=== PATIENT | male | born 1965 | race African-American/Black ===

== ENCOUNTER 2016-07-19 05:57 | Emergency (ER) | payer MEDICAID ==
[~2016-07-19] VITALS: Ht 162.6 cm; Wt 68.2 kg
[~2016-07-19 05:57] MED LIST: ALBU8HFA IH; PRED5 PO
[2016-07-19] MEDS ORDERED: MethylPREDNISolone SOD SUCC 125 MG/2 ML VIAL IVP ONE (06:30)
[2016-07-19] MEDS ORDERED: IPRATROPIUM BROMIDE 0.5 MG/2.5 ML NEB SOLUTION NEB ONE (06:30)
[2016-07-19] MEDS ORDERED: ALBUTEROL SULFATE 5 MG/ML 20 ML NEB SOLN [BULK] NEB ONE (06:30)
[2016-07-19 07:28] VITALS: BP 156/98
[2016-07-19] MEDS ORDERED: ALBUTEROL SULFATE HFA 90 MCG/PUFF 8 GM INHALER IH ONE (08:15)
== END 2016-07-19 08:53 | disposition home or self-care (01) ==
LOC: EMS 05:58
DX: J45.909 Unspecified asthma, uncomplicated (principal)
CPT/HCPCS: 71010; 94644; 96374; 99285; J2930; J7611; J3535

== ENCOUNTER 2017-03-22 05:45 | Emergency (ER) | payer MEDICAID, OTHER ==
[~2017-03-22] VITALS: Ht 170.2 cm; Wt 79.5 kg
[2017-03-22] MEDS ORDERED: ALBUTEROL SULFATE 5 MG/ML 20 ML NEB SOLN [BULK] NEB ONE ×2 (06:15)
[2017-03-22] MEDS ORDERED: IPRATROPIUM BROMIDE 0.5 MG/2.5 ML NEB SOLUTION NEB ONE ×2 (06:15)
[2017-03-22] MEDS ORDERED: MethylPREDNISolone SOD SUCC 125 MG/2 ML VIAL IVP ONE (06:30)
[2017-03-22] MEDS ORDERED: 0.9% SODIUM CHLORIDE 15 ML NEB SOLUTION NEB ONE (06:34)
[2017-03-22 09:30] VITALS: BP 136/98
[2017-03-22] MEDS ORDERED: ALBUTEROL SULFATE HFA 90 MCG/PUFF 8 GM INHALER IH ONE (09:30)
== END 2017-03-22 09:59 | disposition home or self-care (01) ==
LOC: EMS 05:46
DX: J45.901 Unspecified asthma with (acute) exacerbation (principal)
CPT/HCPCS: 94644; 96374; 99285; J2930; J7611; J3535

== ENCOUNTER 2017-06-26 07:25 | Emergency (ER) | payer OTHER ==
[~2017-06-26] VITALS: Ht 170.2 cm; Wt 65.9 kg
[2017-06-26] MEDS ORDERED: ALBUTEROL SULFATE HFA 90 MCG/PUFF 8 GM INHALER IH ONE (08:15)
[2017-06-26 08:36] VITALS: BP 172/107
== END 2017-06-26 08:37 | disposition home or self-care (01) ==
LOC: EMS 07:26
DX: J45.909 Unspecified asthma, uncomplicated (principal)
CPT/HCPCS: 94640; 99283; J3535

== ENCOUNTER 2018-05-28 15:41 | Emergency (ER) | payer OTHER ==
[~2018-05-28] VITALS: Ht 167.6 cm; Wt 68.2 kg
[~2018-05-28 15:41] MED LIST changes: -PRED5 PO
[2018-05-28 17:02] VITALS: BP 145/85
== END 2018-05-28 17:06 | disposition home or self-care (01) ==
LOC: EMS 15:41
DX: J45.909 Unspecified asthma, uncomplicated (principal)

== ENCOUNTER 2018-07-09 10:03 | Emergency (ER) | payer OTHER ==
[~2018-07-09] VITALS: Ht 172.7 cm; Wt 66.8 kg
[2018-07-09] MEDS ORDERED: ALBUTEROL SULFATE HFA 90 MCG/PUFF 8 GM INHALER IH ONE ×2 (11:39→12:00)
[2018-07-09 12:34] VITALS: BP 165/87
== END 2018-07-09 12:43 | disposition home or self-care (01) ==
LOC: EMS 10:07 → EDSEX 10:07 → EMS 12:43
DX: J45.901 Unspecified asthma with (acute) exacerbation (principal)
CPT/HCPCS: 94640; J3535

== ENCOUNTER 2018-07-17 09:23 | Emergency (ER) | payer OTHER ==
[~2018-07-17] VITALS: Ht 170.2 cm; Wt 70.5 kg
[2018-07-17] MEDS: IPRATROPIUM BROMIDE 0.5 MG/2.5 ML NEB SOLUTION NEB ONE ×2 (09:57→10:23)
[2018-07-17] MEDS: ALBUTEROL SULFATE 5 MG/ML 20 ML NEB SOLN [BULK] NEB ONE ×2 (09:57→10:23)
[2018-07-17] MEDS ORDERED: PredniSONE 20 MG TABLET PO ONE (10:00)
[2018-07-17] MEDS ORDERED: ALBUTEROL SULFATE HFA 90 MCG/PUFF 8 GM INHALER IH ONE (12:15)
[2018-07-17 12:24] VITALS: BP 166/98
== END 2018-07-17 12:40 | disposition home or self-care (01) ==
LOC: EMS 09:24
DX: J45.901 Unspecified asthma with (acute) exacerbation (principal); Z91.018 Allergy to other foods
CPT/HCPCS: 71045; 94644; 99285; J7512; J3535

== ENCOUNTER 2018-09-26 03:10 | Emergency (ER) | payer OTHER ==
[~2018-09-26] VITALS: Ht 167.6 cm; Wt 68.2 kg
[2018-09-26] MEDS ORDERED: MethylPREDNISolone SOD SUCC 125 MG/2 ML VIAL IVP ONE (03:45)
[2018-09-26] MEDS ORDERED: IPRATROPIUM BROMIDE 0.5 MG/2.5 ML NEB SOLUTION NEB ONE ×2 (03:45→05:45)
[2018-09-26] MEDS ORDERED: ALBUTEROL SULFATE 5 MG/ML 20 ML NEB SOLN [BULK] NEB ONE ×2 (03:45→05:45)
[2018-09-26 06:09] LABS: BASOPHILS % (AUTO) 0.6 % (0.0-2.0); EOSINOPHILS % (AUTO) 1.6 % (1.0-6.0); HEMATOCRIT 45.9 % (41-53); LYMPHOCYTES # (AUTO) 1.1 K/uL (1.0-4.8); LYMPHOCYTES % (AUTO) 10.1 % (22.0-44.0); MEAN CORPUSCULAR HEMOGLOBIN 27.3 pg (26.0-34.0); MEAN CORPUSCULAR HGB CONC 32.7 G/dL (31.0-37.0); MEAN CORPUSCULAR VOLUME 84 fL (80-100); MONOCYTES # (AUTO) 0.4 K/uL (0.1-1.0); MONOCYTES % (AUTO) 3.5 % (2.0-9.0); NEUTROPHILS # (AUTO) 9.5 K/uL (1.8-7.7); NEUTROPHILS % (AUTO) 84.2 % (40.0-70.0); PLATELET COUNT (AUTO) 237 K/uL (150-450); RED CELL DISTRIBUTION WIDTH 14.9 % (11.5-14.5)
[2018-09-26 06:18] LABS: ANION GAP 9 mmol/L (8-16); CALCIUM, TOTAL 9.2 mg/dL (8.8-10.5); CARBON DIOXIDE 28 mmol/L (22-29); CHLORIDE 104 mmol/L (98-107); CREATININE 1.39 mg/dL (0.60-1.30); GLOMERULAR FILTR. RATE CALC > 60 mL/min (>60); GLUCOSE,RANDOM 141 mg/dL (70-110); POTASSIUM 3.3 mmol/L (3.5-5.1); SODIUM SERUM 141 mmol/L (136-145); UREA NITROGEN, BLOOD 11 mg/dL (7-18)
[2018-09-26 06:23] LABS: ALANINE AMINOTRANSFERASE 22 U/L (12-78); ALBUMIN 3.8 g/dL (3.4-5.0); ALKALINE PHOSPHATASE 71 U/L (46-116); ASPARTATE AMINOTRANSFERASE 18 U/L (15-37); BILIRUBIN,TOTAL 0.2 mg/dL (0.1-1.0); TOTAL PROTEIN, SERUM 7.8 g/dL (6.4-8.2)
[2018-09-26] MEDS ORDERED: ACETAMINOPHEN 325 MG TABLET PO PRN (06:30)
[2018-09-26] MEDS ORDERED: ONDANSETRON HCL 4 MG/2 ML VIAL IVP PRN (06:30)
[2018-09-26] MEDS ORDERED: 0.9% SODIUM CHLORIDE 10 ML SYRINGE IVP PRN (06:30)
[2018-09-26] MEDS ORDERED: ALBUTEROL SULFATE 2.5 MG/0.5 ML NEB SOLUTION NEB SCH (08:00)
[2018-09-26] MEDS ORDERED: IPRATROPIUM BROMIDE 0.5 MG/2.5 ML NEB SOLUTION NEB SCH (08:00)
[2018-09-26 10:40] VITALS: BP 139/92
== END 2018-09-26 11:22 | disposition left against medical advice (07) ==
LOC: EMS 03:10
DX: J45.901 Unspecified asthma with (acute) exacerbation (principal); Z91.018 Allergy to other foods
CPT/HCPCS: 36415; 71045; 80053; 85025; 94640; 94644; 96374; 99285; J2930

== ENCOUNTER 2018-10-21 00:01 | Emergency (ER) | payer OTHER ==
[~2018-10-21] VITALS: Ht 167.6 cm; Wt 70.5 kg
[2018-10-21] MEDS ORDERED: BACITRACIN 0.9 GM PACKET OINTMENT TP ONE (01:45)
[2018-10-21] MEDS ORDERED: CEPHALEXIN MONOHYDRATE 500 MG CAPSULE PO ONE (01:45)
[2018-10-21] MEDS ORDERED: PERTUSS(ACELL),DIPH,TET VAC/PF 0.5 ML VIAL IM ONE (02:00)
[2018-10-21 02:04] VITALS: BP 138/89
== END 2018-10-21 02:09 | disposition home or self-care (01) ==
LOC: EMS 00:03
DX: S61.411A Laceration without foreign body of right hand, initial encounter (principal); J45.909 Unspecified asthma, uncomplicated; Z91.018 Allergy to other foods; W45.8XXA Other foreign body or object entering through skin, initial encounter; Y93.89 Activity, other specified; Y92.89 Other specified places as the place of occurrence of the external cause; Y99.8 Other external cause status
CPT/HCPCS: 90471; 90715

== ENCOUNTER 2018-12-30 08:56 | Emergency (ER) | payer OTHER ==
[~2018-12-30] VITALS: Ht 167.6 cm; Wt 68.2 kg
[2018-12-30] MEDS ORDERED: IPRATROPIUM BROMIDE 0.5 MG/2.5 ML NEB SOLUTION NEB ONE ×2 (09:02→09:15)
[2018-12-30] MEDS ORDERED: ALBUTEROL SULFATE 5 MG/ML 20 ML NEB SOLN [BULK] NEB ONE (09:15)
[2018-12-30] MEDS ORDERED: ALBUTEROL SULFATE HFA 90 MCG/PUFF 8 GM INHALER IH ONE (09:15)
[2018-12-30 10:54] VITALS: BP 155/91
== END 2018-12-30 11:06 | disposition home or self-care (01) ==
LOC: EMS 08:56
DX: J45.901 Unspecified asthma with (acute) exacerbation (principal); Z91.018 Allergy to other foods
CPT/HCPCS: 94060; 94644; J3535

== ENCOUNTER 2019-04-10 19:45 | Emergency (ER) | payer OTHER ==
[~2019-04-10] VITALS: Ht 170.2 cm; Wt 72.7 kg
[2019-04-10] MEDS ORDERED: ALBUTEROL SULFATE 2.5 MG/0.5 ML NEB SOLUTION NEB ONE (20:00)
[2019-04-10] MEDS ORDERED: IPRATROPIUM BROMIDE 0.5 MG/2.5 ML NEB SOLUTION NEB ONE (20:00)
[2019-04-10] MEDS ORDERED: ALBUTEROL SULFATE HFA 90 MCG/PUFF 8 GM INHALER IH ONE (21:45)
[2019-04-10] MEDS ORDERED: PredniSONE 20 MG TABLET PO ONE (21:45)
[2019-04-10 21:54] VITALS: BP 158/90
== END 2019-04-10 22:00 | disposition left against medical advice (07) ==
LOC: EMS 19:45
DX: J45.901 Unspecified asthma with (acute) exacerbation (principal); Z79.899 Other long term (current) drug therapy; Z91.018 Allergy to other foods
CPT/HCPCS: 71045; 94640; 99284; J7512; J3535

== ENCOUNTER 2020-10-19 17:34 | Emergency (ER) | payer OTHER ==
[~2020-10-19] VITALS: Ht 167.6 cm; Wt 72.0 kg
[2020-10-19 18:44] LABS: BASOPHILS % (AUTO) 0.8 % (0.0-2.0); EOSINOPHILS % (AUTO) 4.2 % (1.0-6.0); HEMATOCRIT 40.3 % (41-53); LYMPHOCYTES # (AUTO) 2.4 K/uL (1.0-4.8); LYMPHOCYTES % (AUTO) 27.8 % (22.0-44.0); MEAN CORPUSCULAR HEMOGLOBIN 26.5 pg (26.0-34.0); MEAN CORPUSCULAR HGB CONC 32.2 G/dL (31.0-37.0); MEAN CORPUSCULAR VOLUME 82 fL (80-100); MONOCYTES # (AUTO) 0.7 K/uL (0.1-1.0); MONOCYTES % (AUTO) 8.8 % (2.0-9.0); NEUTROPHILS % (AUTO) 58.4 % (40.0-70.0); PLATELET COUNT (AUTO) 257 K/uL (150-450); RED BLOOD CELL COUNT(AUTO) 4.91 MIL/uL (4.50-5.90); RED CELL DISTRIBUTION WIDTH 14.9 % (11.5-14.5)
[2020-10-19 18:53] LABS: CALCIUM, TOTAL 8.9 mg/dL (8.8-10.5); CREATININE 1.55 mg/dL (0.60-1.30)
[2020-10-19 19:08] LABS: ALBUMIN 3.5 g/dL (3.4-5.0); BILIRUBIN,TOTAL 0.3 mg/dL (0.1-1.0); THYROID STIMULATING HORMONE 0.7 uIU/mL (0.36-3.74); TOTAL PROTEIN, SERUM 7.3 g/dL (6.4-8.2)
[2020-10-19 19:42] VITALS: BP 148/80
== END 2020-10-19 19:43 | disposition home or self-care (01) ==
LOC: EMS 17:34
DX: R00.2 Palpitations (principal); J45.909 Unspecified asthma, uncomplicated; Z91.018 Allergy to other foods
CPT/HCPCS: 80053; 84443; 85025; 93005; 99284

== ENCOUNTER 2021-04-19 23:52 | Emergency (ER) | payer OTHER ==
[~2021-04-19] VITALS: Ht 170.2 cm; Wt 70.5 kg
[2021-04-20] MEDS ORDERED: 0.9% SODIUM CHLORIDE 5 ML NEB SOLUTION NEB ONE (00:24)
[2021-04-20] MEDS ORDERED: 0.9% SODIUM CHLORIDE 10 ML SYRINGE IVP PRN (00:30)
[2021-04-20] MEDS ORDERED: ALBUTEROL SULFATE 5 MG/ML 20 ML NEB SOLN [BULK] NEB ONE (00:30)
[2021-04-20 01:15] LABS: ANION GAP 11 mmol/L (8-16); CALCIUM, TOTAL 9.2 mg/dL (8.8-10.5); CARBON DIOXIDE 27 mmol/L (22-29); CHLORIDE 103 mmol/L (98-107); CREATININE 1.26 mg/dL (0.60-1.30); GLOMERULAR FILTR. RATE CALC > 60 mL/min (>60); GLUCOSE,RANDOM 153 mg/dL (70-110); POTASSIUM 3.4 mmol/L (3.5-5.1); SODIUM SERUM 141 mmol/L (136-145); UREA NITROGEN, BLOOD 12 mg/dL (7-18)
[2021-04-20 01:16] LABS: BASOPHILS % (AUTO) 0.4 % (0.0-2.0); EOSINOPHILS % (AUTO) 2.5 % (1.0-6.0); HEMATOCRIT 44.1 % (41-53); HEMOGLOBIN 14.9 g/dL (13.5-17.5); LYMPHOCYTES # (AUTO) 2.1 K/uL (1.0-4.8); LYMPHOCYTES % (AUTO) 22.5 % (22.0-44.0); MEAN CORPUSCULAR HGB CONC 33.7 G/dL (31.0-37.0); MEAN CORPUSCULAR VOLUME 80 fL (80-100); MONOCYTES # (AUTO) 1.1 K/uL (0.1-1.0); MONOCYTES % (AUTO) 11.9 % (2.0-9.0); NEUTROPHILS # (AUTO) 5.9 K/uL (1.8-7.7); NEUTROPHILS % (AUTO) 62.7 % (40.0-70.0); PLATELET COUNT (AUTO) 239 K/uL (150-450); RED BLOOD CELL COUNT(AUTO) 5.49 MIL/uL (4.50-5.90); RED CELL DISTRIBUTION WIDTH 14.7 % (11.5-14.5)
[2021-04-20 01:19] LABS: PROTHROMBIN TIME 10.8 SEC (9.4-11.6)
[2021-04-20 01:21] LABS: ALANINE AMINOTRANSFERASE 28 U/L (12-78); ALBUMIN 3.6 g/dL (3.4-5.0); ALKALINE PHOSPHATASE 97 U/L (46-116); ASPARTATE AMINOTRANSFERASE 27 U/L (15-37); BILIRUBIN,TOTAL 0.4 mg/dL (0.1-1.0); TOTAL PROTEIN, SERUM 7.8 g/dL (6.4-8.2)
[2021-04-20 01:23] LABS: LACTIC ACID 0.7 mmol/L (0.4-2.0)
[2021-04-20 01:32] LABS: COVID AG,FIA SOURCE NASOPHARYNGEAL
[2021-04-20] MEDS ORDERED: IBUPROFEN 800 MG TABLET PO ONE (01:45)
[2021-04-20] MEDS ORDERED: ACETAMINOPHEN 500 MG TABLET PO ONE (01:45)
[2021-04-20] MEDS ORDERED: POTASSIUM CHLORIDE 20 MEQ ER TABLET PO ONE (02:45)
[2021-04-20 04:07] VITALS: BP 156/89
[2021-04-20 04:12] LABS: D-DIMER 0.19 mg/L FEU (0.00-0.50)
== END 2021-04-20 05:00 | disposition home or self-care (01) ==
LOC: EMS 23:56
DX: J45.909 Unspecified asthma, uncomplicated (principal); Z20.822 Contact with and (suspected) exposure to COVID-19; Z79.899 Other long term (current) drug therapy; Z91.018 Allergy to other foods
CPT/HCPCS: 36415; 71045; 80053; 83605; 85025; 85379; 85610; 87040; 87426; 93005; 94640; 99285; U0003; J7611

== ENCOUNTER 2022-03-26 01:28 | Emergency (ER) | payer OTHER ==
[~2022-03-26] VITALS: Ht 170.2 cm; Wt 71.0 kg
[2022-03-26 05:44] LABS: BASOPHILS % (AUTO) 0.9 % (0.0-2.0); EOSINOPHILS % (AUTO) 3.4 % (1.0-6.0); HEMATOCRIT 42.8 % (41-53); HEMOGLOBIN 14.1 g/dL (13.5-17.5); LYMPHOCYTES # (AUTO) 2.1 K/uL (1.0-4.8); LYMPHOCYTES % (AUTO) 17.2 % (22.0-44.0); MEAN CORPUSCULAR HGB CONC 32.9 G/dL (31.0-37.0); MEAN CORPUSCULAR VOLUME 82 fL (80-100); MONOCYTES # (AUTO) 0.9 K/uL (0.1-1.0); MONOCYTES % (AUTO) 7.5 % (2.0-9.0); NEUTROPHILS # (AUTO) 8.8 K/uL (1.8-7.7); PLATELET COUNT (AUTO) 343 K/uL (150-450); RED CELL DISTRIBUTION WIDTH 14.8 % (11.5-14.5)
[2022-03-26 05:53] LABS: CALCIUM, TOTAL 9.8 mg/dL (8.8-10.5); CREATININE 1.56 mg/dL (0.60-1.30); POTASSIUM 4.2 mmol/L (3.5-5.1)
[2022-03-26 05:59] LABS: ALBUMIN 3.7 g/dL (3.4-5.0); BILIRUBIN,TOTAL 0.5 mg/dL (0.1-1.0); TOTAL PROTEIN, SERUM 8.3 g/dL (6.4-8.2)
[2022-03-26 06:53] VITALS: BP 149/75
== END 2022-03-26 07:12 | disposition home or self-care (01) ==
LOC: EMS 01:29
DX: S80.12XA Contusion of left lower leg, initial encounter (principal); J45.909 Unspecified asthma, uncomplicated; D17.5 Benign lipomatous neoplasm of intra-abdominal organs; Z91.018 Allergy to other foods; X58.XXXA Exposure to other specified factors, initial encounter; Y93.B2 Activity, push-ups, pull-ups, sit-ups; Y92.89 Other specified places as the place of occurrence of the external cause; Y99.8 Other external cause status
CPT/HCPCS: 80053; 85025; 99284

== ENCOUNTER 2023-03-14 07:03 | Emergency (ER) | payer OTHER ==
[~2023-03-14] VITALS: Ht 165.1 cm; Wt 68.2 kg
[2023-03-14] VITALS (7 sets, daily range): BP systolic 138; BP diastolic 83; PULSE 71–118; RESP 20; TEMP 98.8; O2SAT 97–100
[~2023-03-14 07:03] MED LIST changes: +ALBU18HF12 IH; -ALBU8HFA IH; +PRED-729 PO
[2023-03-14] MEDS ORDERED: ALBUTEROL SULFATE 2.5 MG/0.5 ML 5 ML NEB SOLUTION NEB ONE ×2 (07:15→10:15)
[2023-03-14] MEDS ORDERED: MethylPREDNISolone SOD SUCC 125 MG/2 ML VIAL IVP ONE (07:15)
[2023-03-14] MEDS ORDERED: IPRATROPIUM BROMIDE 0.5 MG/2.5 ML NEB SOLUTION NEB ONE ×2 (07:15→10:15)
[2023-03-14 08:53] LABS: ALCOHOL, BLOOD (SERUM) < 3 mg/dL (0-10); ANION GAP 6 mmol/L (8-16); CALCIUM, TOTAL 9.1 mg/dL (8.8-10.5); CARBON DIOXIDE 29 mmol/L (22-29); CHLORIDE 103 mmol/L (98-107); CREATININE 1.48 mg/dL (0.60-1.30); GLOMERULAR FILTR. RATE CALC 60 mL/min (>60); GLUCOSE,RANDOM 160 mg/dL (70-110); POTASSIUM 3.5 mmol/L (3.5-5.1); SODIUM SERUM 138 mmol/L (136-145); UREA NITROGEN, BLOOD 15 mg/dL (7-18)
[2023-03-14 09:01] LABS: TROPONIN I-HIGH SENSITIVITY 22 ng/L (<76)
[2023-03-14 09:18] LABS: ALANINE AMINOTRANSFERASE 31 U/L (12-78); ALBUMIN 3.8 g/dL (3.4-5.0); ALKALINE PHOSPHATASE 95 U/L (46-116); ASPARTATE AMINOTRANSFERASE 26 U/L (15-37); BILIRUBIN,TOTAL 0.3 mg/dL (0.1-1.0); CREATINE KINASE, TOTAL ONLY 202 U/L (39-308); LIPASE 56 U/L (16-77); TOTAL PROTEIN, SERUM 8.2 g/dL (6.4-8.2)
[2023-03-14 09:23] LABS: BASOPHILS % (AUTO) 0.4 % (0.0-2.0); EOSINOPHILS % (AUTO) 3.4 % (1.0-6.0); HEMATOCRIT 42.6 % (41-53); HEMOGLOBIN 14.2 g/dL (13.5-17.5); LYMPHOCYTES # (AUTO) 2.1 K/uL (1.0-4.8); LYMPHOCYTES % (AUTO) 17.7 % (22.0-44.0); MEAN CORPUSCULAR HEMOGLOBIN 27.8 pg (26.0-34.0); MEAN CORPUSCULAR HGB CONC 33.4 G/dL (31.0-37.0); MEAN CORPUSCULAR VOLUME 83 fL (80-100); MONOCYTES # (AUTO) 0.7 K/uL (0.1-1.0); MONOCYTES % (AUTO) 5.6 % (2.0-9.0); NEUTROPHILS # (AUTO) 8.5 K/uL (1.8-7.7); NEUTROPHILS % (AUTO) 72.9 % (40.0-70.0); PLATELET COUNT (AUTO) 265 K/uL (150-450); RED BLOOD CELL COUNT(AUTO) 5.13 MIL/uL (4.50-5.90); RED CELL DISTRIBUTION WIDTH 14.8 % (11.5-14.5); WHITE BLOOD COUNT (AUTO) 11.7 K/uL (4.5-11.0)
[2023-03-14 09:23] LABS: COVID AG,FIA SOURCE NASAL SWAB
[2023-03-14 09:48] LABS: INFLUENZA TYPE A NEGATIVE FOR TYPE A (NEGATIVE); INFLUENZA TYPE B NEGATIVE FOR TYPE B (NEGATIVE); SARS-COV2 (COVID) ANTIGEN,FIA Negative (Negative)
[2023-03-14] MEDS ORDERED: GUAIFDM PO (12:06)
[2023-03-14] MEDS ORDERED: ALBU18HF12 IH (12:06)
[2023-03-14] MEDS ORDERED: AZIT250T9 PO (12:06)
[2023-03-14] MEDS ORDERED: PRED-554 PO (12:06)
[2023-03-14] MEDS ORDERED: FLUT12AE20 IH (12:06)
[2023-03-14 13:31] LABS: APPEARANCE,URINE CLEAR (CLEAR); BILIRUBIN,URINE NEGATIVE (NEGATIVE); COLOR,URINE LIGHT YELLOW (YELLOW); GLUCOSE, URINE (UA) NEGATIVE (NEGATIVE); KETONES,URINE NEGATIVE (NEGATIVE); LEUKOCYTE ESTERASE ,URINE NEGATIVE (NEGATIVE); NITRATE,URINE NEGATIVE (NEGATIVE); OCCULT BLOOD,URINE NEGATIVE (NEGATIVE); PH,URINE 5.5 (5.0-8.0); PROTEIN,URINE TRACE mg/dL (NEGATIVE); SPECIFIC GRAVITIY, URINE 1.017 (1.003-1.030); UROBILINOGEN,URINE <=1.0 mg/dL (<=1.0)
[2023-03-14 13:53] LABS: BACTERIA,URINE None Seen /HPF (None Seen); RBC,URINE None Seen /HPF (0-2); WBC,URINE None Seen /HPF (0-5)
== END 2023-03-14 12:42 | disposition left against medical advice (07) ==
LOC: EMS 07:04
DX: J45.902 Unspecified asthma with status asthmaticus (principal); Z91.018 Allergy to other foods; Z20.822 Contact with and (suspected) exposure to COVID-19
CPT/HCPCS: 99291; 96374; 71045; 87426; 80053; 82550; 83605; 83690; 84484; 85025; 87040; 87205; 87804; 87077; 94644; 93005; 81001; 36415; G0480; J2930; Q9967

== ENCOUNTER 2023-03-16 02:34 | Emergency (ER) | payer OTHER ==
[~2023-03-16] VITALS: Ht 165.1 cm; Wt 68.2 kg
[~2023-03-16 02:34] MED LIST changes: +AZIT250T9 PO; +FLUT12AE20 IH; +GUAIFDM PO; +PRED-554 PO
[2023-03-16] MEDS ORDERED: ALBUTEROL SULFATE 2.5 MG/0.5 ML 5 ML NEB SOLUTION NEB ONE (04:00)
[2023-03-16] MEDS ORDERED: IPRATROPIUM BROMIDE 0.5 MG/2.5 ML NEB SOLUTION NEB ONE (04:00)
[2023-03-16 04:27] VITALS: PULSE 58; RESP 21; O2SAT 95
[2023-03-16 04:28] VITALS: PULSE 58; RESP 21; O2SAT 95
[2023-03-16] MEDS ORDERED: DEXAMETHASONE SOD PHOS 4 MG/ML 5 ML VIAL IM ONE (04:30)
[2023-03-16] MEDS ORDERED: PRED-554 PO (05:21)
[2023-03-16] MEDS ORDERED: ALBU18HF12 IH (05:21)
[2023-03-16 06:18] VITALS: BP 132/99; PULSE 89; RESP 21; TEMP 97.3
== END 2023-03-16 06:33 | disposition home or self-care (01) ==
LOC: EMS 02:35
DX: J45.901 Unspecified asthma with (acute) exacerbation (principal); Z91.018 Allergy to other foods
CPT/HCPCS: 94060; 99283; 96372; 94640; J1100; Q9967

== ENCOUNTER → 2023-07-14 | Emergency (ER) | payer OTHER ==
[2023-07-13 01:10] VITALS: PULSE 111; RESP 20; O2SAT 97
[~2023-07-14] VITALS: Ht 167.6 cm; Wt 51.0 kg
[~2023-07-14] MED LIST changes: -AZIT250T9 PO
[2023-07-14 00:30] VITALS: BP 159/97; TEMP 97.7
[2023-07-14] MEDS: ALBUTEROL SULFATE 2.5 MG/0.5 ML NEB SOLUTION NEB ONE (00:53)
[2023-07-14] MEDS: IPRATROPIUM BROMIDE 0.5 MG/2.5 ML NEB SOLUTION NEB ONE (00:53)
[2023-07-14] MEDS: ALBUTEROL SULFATE HFA 90 MCG/PUFF 8 GM INHALER IH ONE (00:53)
[2023-07-14 00:55] VITALS: PULSE 108; RESP 20; O2SAT 91
[2023-07-14] MEDS: DEXAMETHASONE SOD PHOS 4 MG/ML 5 ML VIAL IM ONE (01:21)
== END | disposition still patient (30) ==
LOC: EMS 00:22
DX: J45.901 Unspecified asthma with (acute) exacerbation (principal); Z91.018 Allergy to other foods
CPT/HCPCS: 99283; 94640; 96372; J1100; J3535

== ENCOUNTER 2023-08-16 20:07 | Emergency (ER) | payer OTHER ==
[~2023-08-16] VITALS: Ht 170.2 cm; Wt 60.0 kg
[2023-08-16 20:42] VITALS: TEMP 98
[2023-08-17 00:17] VITALS: BP 170/91; PULSE 79; RESP 16
== END 2023-08-17 01:52 | disposition short-term general hospital (02) ==
LOC: EMS 20:08
DX: S02.40CA Maxillary fracture, right side, initial encounter for closed fracture (principal); S62.390A Other fracture of second metacarpal bone, right hand, initial encounter for closed fracture; H50.6 Mechanical strabismus; J45.909 Unspecified asthma, uncomplicated; Y08.89XA Assault by other specified means, initial encounter; Y93.89 Activity, other specified; Y92.89 Other specified places as the place of occurrence of the external cause; Y99.8 Other external cause status
CPT/HCPCS: 70450; 70486; 72125; 99291

== ENCOUNTER 2023-11-11 06:53 | Emergency (ER) | payer OTHER ==
[~2023-11-11] VITALS: Ht 167.6 cm; Wt 70.5 kg
[2023-11-11 07:04] VITALS: TEMP 98.3
[2023-11-11] MEDS: DEXAMETHASONE SOD PHOS 4 MG/ML 5 ML VIAL IM ONE (07:24)
[2023-11-11] MEDS: ALBUTEROL SULFATE 2.5 MG/0.5 ML NEB SOLUTION NEB ONE (07:27)
[2023-11-11] MEDS: IPRATROPIUM BROMIDE 0.5 MG/2.5 ML NEB SOLUTION NEB ONE (07:27)
[2023-11-11 07:28] VITALS: PULSE 87; RESP 16; O2SAT 96
[2023-11-11 07:53] VITALS: PULSE 73; RESP 18; O2SAT 98
[2023-11-11 08:57] VITALS: BP 161/96; PULSE 77; RESP 16
[2023-11-11] MEDS ORDERED: HYDR25TA2 PO (09:11)
[2023-11-11] MEDS ORDERED: PRED-554 PO (09:12)
[2023-11-11] MEDS ORDERED: ALBU18HF12 IH (09:13)
== END 2023-11-11 09:34 | disposition home or self-care (01) ==
LOC: EMS 06:54
DX: J45.901 Unspecified asthma with (acute) exacerbation (principal); I10 Essential (primary) hypertension
CPT/HCPCS: 99283; 71045; 94640; 93005; 96372; J1100; J7613

== ENCOUNTER 2024-04-07 12:45 | Emergency (ER) | payer OTHER ==
[~2024-04-07] VITALS: Ht 172.7 cm; Wt 70.5 kg
[~2024-04-07 12:45] MED LIST changes: +HYDR25TA2 PO
[2024-04-07 13:13] VITALS: BP 150/91; TEMP 98.1
[2024-04-07 14:50] VITALS: PULSE 71; RESP 18; O2SAT 96; O2SAT 97
[2024-04-07] MEDS: ALBUTEROL SULFATE 2.5 MG/0.5 ML NEB SOLUTION NEB ONE (14:50)
[2024-04-07] MEDS: IPRATROPIUM BROMIDE 0.5 MG/2.5 ML NEB SOLUTION NEB ONE (14:50)
[2024-04-07] MEDS: DEXAMETHASONE SOD PHOS 4 MG/ML 5 ML VIAL IM ONE (14:54)
[2024-04-07 15:05] VITALS: PULSE 72; RESP 18; O2SAT 99
== END 2024-04-07 15:35 | disposition home or self-care (01) ==
LOC: EMS 12:46
DX: J45.901 Unspecified asthma with (acute) exacerbation (principal); Z79.52 Long term (current) use of systemic steroids; Z91.018 Allergy to other foods
CPT/HCPCS: 99283; 71045; 94640; 96372; J1100; J7613

== ENCOUNTER 2024-05-06 11:36 | Inpatient (IN) | payer OTHER ==
[~2024-05-06] VITALS: Ht 170.2 cm; Wt 70.2 kg
[2024-05-06] MEDS: PredniSONE 20 MG TABLET PO ONE (12:37)
[2024-05-06] MEDS: IPRATROPIUM BROMIDE 0.5 MG/2.5 ML NEB SOLUTION NEB ONE (13:15)
[2024-05-06] MEDS: ALBUTEROL SULFATE 2.5 MG/0.5 ML NEB SOLUTION NEB ONE (13:15)
[2024-05-06 13:16] VITALS: PULSE 77; RESP 18; O2SAT 99
[2024-05-06 13:20] VITALS: PULSE 77; RESP 18; O2SAT 99
[2024-05-06 13:25] LABS: BASOPHILS % (AUTO) 0.4 % (0.0-2.0); EOSINOPHILS % (AUTO) 6.1 % (1.0-6.0); HEMATOCRIT 47.3 % (41-53); HEMOGLOBIN 15.3 g/dL (13.5-17.5); LYMPHOCYTES % (AUTO) 19.3 % (22.0-44.0); MEAN CORPUSCULAR HGB CONC 32.3 G/dL (31.0-37.0); MEAN CORPUSCULAR VOLUME 84 fL (80-100); MONOCYTES # (AUTO) 0.9 K/uL (0.1-1.0); MONOCYTES % (AUTO) 8.7 % (2.0-9.0); NEUTROPHILS # (AUTO) 6.7 K/uL (1.8-7.7); NEUTROPHILS % (AUTO) 65.5 % (40.0-70.0); PLATELET COUNT (AUTO) 255 K/uL (150-450); RED BLOOD CELL COUNT(AUTO) 5.66 MIL/uL (4.50-5.90); WHITE BLOOD COUNT (AUTO) 10.2 K/uL (4.5-11.0)
[2024-05-06 13:27] VITALS: PULSE 71; RESP 20; O2SAT 100
[2024-05-06 13:30] LABS: CALCIUM, TOTAL 8.9 mg/dL (8.8-10.5); CREATININE 1.5 mg/dL (0.60-1.30); POTASSIUM 3.7 mmol/L (3.5-5.1)
[2024-05-06 13:39] LABS: TROPONIN I-HIGH SENSITIVITY 18 ng/L (<76)
[2024-05-06] MEDS ORDERED: PRED-554 PO (14:17)
[2024-05-06] MEDS: ALBUTEROL SULFATE HFA 90 MCG/PUFF 8 GM INHALER IH ONE (16:19)
[2024-05-06] MEDS: HYDROCHLOROTHIAZIDE 25 MG TABLET PO ONE (16:19)
[2024-05-06] MEDS ORDERED: CloNIDine HCL 0.1 MG TABLET PO PRN (16:30)
[2024-05-06] MEDS ORDERED: ACETAMINOPHEN 325 MG TABLET PO PRN (16:30)
[2024-05-06] MEDS: SODIUM CHLORIDE 0.9% 1,000 ML IV ONE (17:14)
[2024-05-06] MEDS: AmLODIPine BESYLATE 5 MG TABLET PO SCH (17:14)
[2024-05-06] MEDS: DOCUSATE SODIUM 100 MG CAPSULE PO SCH (20:17)
[2024-05-06 21:30] VITALS: BP 140/88; PULSE 95; RESP 18; TEMP 98.7; O2SAT 100
[2024-05-06] MEDS: HEPARIN SODIUM,PORCINE 5,000 UNITS/ML VIAL SQ SCH (23:32)
[2024-05-07 04:55] VITALS: BP 140/102; PULSE 91; RESP 18; TEMP 97.9
[2024-05-07] MEDS: ALBUTEROL SULFATE 2.5 MG/0.5 ML NEB SOLUTION NEB PRN (05:08)
[2024-05-07 05:10] VITALS: PULSE 87; RESP 20; O2SAT 91
[2024-05-07] MEDS: INFLUENZA VIRUS VACCINE TVS (6MO+) 2024-25/PF 45 MCG/0.5 ML SYRINGE IM. ONE (05:19)
[2024-05-07 05:25] VITALS: PULSE 83; RESP 20; O2SAT 98
[2024-05-07 06:42] VITALS: BP 148/92; PULSE 85; RESP 18; O2SAT 99
[2024-05-07 07:33] LABS: APPEARANCE,URINE CLEAR (CLEAR); BILIRUBIN,URINE NEGATIVE (NEGATIVE); COLOR,URINE LIGHT YELLOW (YELLOW); GLUCOSE, URINE (UA) 70-100 mg/dL (NEGATIVE); KETONES,URINE TRACE mg/dL (NEGATIVE); LEUKOCYTE ESTERASE ,URINE NEGATIVE (NEGATIVE); NITRATE,URINE NEGATIVE (NEGATIVE); OCCULT BLOOD,URINE NEGATIVE (NEGATIVE); PH,URINE 5.5 (5.0-8.0); PH,URINE DRUG SCREEN 5.5 (5.0-8.0); PROTEIN,URINE 30-70 mg/dL (NEGATIVE); SPECIFIC GRAVITIY, URINE 1.017 (1.003-1.030); UROBILINOGEN,URINE <=1.0 mg/dL (<=1.0)
[2024-05-07 07:41] LABS: ALCOHOL, URINE DRUG SCREEN NEGATIVE (NEGATIVE); AMPHET/METH SCREEN,URINE POSITIVE (NEGATIVE); BARBITURATE SCREEN, URINE NEGATIVE (NEGATIVE); BENZODIAZEPINES SCREEN,URINE NEGATIVE (NEGATIVE); CANNABINOID SCREEN,URINE NEGATIVE (NEGATIVE); COCAINE SCREEN,URINE NEGATIVE (NEGATIVE); METHADONE SCREEN, URINE NEGATIVE (NEGATIVE); OPIATE SCREEN,URINE NEGATIVE (NEGATIVE); PHENCYCLIDINE SCREEN,URINE NEGATIVE (NEGATIVE)
[2024-05-07 07:53] LABS: BACTERIA,URINE None Seen /HPF (None Seen); RBC,URINE None Seen /HPF (0-2); SQUAMOUS EPITHELIAL CELL,UR Few /LPF (None Seen); WBC,URINE None Seen /HPF (0-5)
[2024-05-07 08:26] VITALS: BP 140/93; PULSE 88; RESP 18; TEMP 98; O2SAT 98
[2024-05-07] MEDS: FAMOTIDINE 20 MG TABLET PO SCH (08:26)
[2024-05-07] MEDS: PredniSONE 20 MG TABLET PO SCH (08:26)
[2024-05-07] MEDS ORDERED: AMLO-257 PO (09:53)
[2024-05-07] MEDS ORDERED: PRED-554 PO (09:54)
[2024-05-07] MEDS ORDERED: ALBU18HF12 IH (09:54)
[2024-05-07 12:07] LABS: ANION GAP 7 mmol/L (8-16); CARBON DIOXIDE 27 mmol/L (22-29); CHLORIDE 101 mmol/L (98-107); CREATININE 1.43 mg/dL (0.60-1.30); GLOMERULAR FILTR. RATE CALC > 60 mL/min (>60); GLUCOSE,RANDOM 113 mg/dL (70-110); POTASSIUM 3.9 mmol/L (3.5-5.1); SODIUM SERUM 135 mmol/L (136-145); THYROID STIMULATING HORMONE 0.34 uIU/mL (0.36-3.74); UREA NITROGEN, BLOOD 19 mg/dL (7-18)
== END 2024-05-07 15:35 | disposition home or self-care (01) | DRG 141 ==
LOC: EMS 11:36 → EDH 16:22 → 4E 21:35
PROVIDERS: ADMIT Internal Medicine; ATTEND Internal Medicine
DX: J45.901 Unspecified asthma with (acute) exacerbation (principal); N17.9 Acute kidney failure, unspecified; I12.9 Hypertensive chronic kidney disease with stage 1 through stage 4 chronic kidney disease, or unspecified chronic kidney disease; F41.9 Anxiety disorder, unspecified; N18.2 Chronic kidney disease, stage 2 (mild); Z79.899 Other long term (current) drug therapy
CPT/HCPCS: 71045; 71250; 80048; 80307; 81001; 83880; 84443; 84484; 85025; 93005; 94640; 99285; G0378; J1644; J3535; J7030; 36415-L1; 36415-TC; J7613

== ENCOUNTER 2024-05-19 16:01 | Inpatient (IN) | payer OTHER ==
[~2024-05-19] VITALS: Ht 170.2 cm; Wt 72.8 kg
[~2024-05-19 16:01] MED LIST changes: +AMLO-257 PO; -GUAIFDM PO; -HYDR25TA2 PO; -PRED-729 PO
[2024-05-19] MEDS: MethylPREDNISolone SOD SUCC 125 MG/2 ML VIAL IVP ONE (16:10)
[2024-05-19 16:12] VITALS: PULSE 124; PULSE 127; RESP 24; O2SAT 98
[2024-05-19] MEDS: IPRATROPIUM BROMIDE 0.5 MG/2.5 ML NEB SOLUTION NEB ONE ×2 (16:12→20:03)
[2024-05-19] MEDS: ALBUTEROL SULFATE 2.5 MG/0.5 ML NEB SOLUTION NEB ONE ×2 (16:12→20:04)
[2024-05-19 16:27] VITALS: PULSE 116; RESP 20; O2SAT 99
[2024-05-19] MEDS: SODIUM CHLORIDE 0.9% 2,000 ML IV ONE (16:43)
[2024-05-19] MEDS: CefTRIAXone 1 GM/DEXTROSE 50 ML IV ONE (16:44)
[2024-05-19] MEDS: ACETAMINOPHEN 1000 MG/ISO-OSM 100 ML IV ONE (16:45)
[2024-05-19 16:50] LABS: BASOPHILS % (AUTO) 0.7 % (0.0-2.0); EOSINOPHILS % (AUTO) 0.5 % (1.0-6.0); HEMATOCRIT 45.3 % (41-53); HEMOGLOBIN 14.5 g/dL (13.5-17.5); LYMPHOCYTES # (AUTO) 0.7 K/uL (1.0-4.8); LYMPHOCYTES % (AUTO) 6.7 % (22.0-44.0); MEAN CORPUSCULAR HEMOGLOBIN 26.8 pg (26.0-34.0); MEAN CORPUSCULAR HGB CONC 31.9 G/dL (31.0-37.0); MEAN CORPUSCULAR VOLUME 84 fL (80-100); MONOCYTES # (AUTO) 1.1 K/uL (0.1-1.0); MONOCYTES % (AUTO) 10.2 % (2.0-9.0); NEUTROPHILS # (AUTO) 8.6 K/uL (1.8-7.7); NEUTROPHILS % (AUTO) 81.9 % (40.0-70.0); PLATELET COUNT (AUTO) 224 K/uL (150-450); RED BLOOD CELL COUNT(AUTO) 5.39 MIL/uL (4.50-5.90); RED CELL DISTRIBUTION WIDTH 15.1 % (11.5-14.5); WHITE BLOOD COUNT (AUTO) 10.5 K/uL (4.5-11.0)
[2024-05-19 16:59] LABS: CREATININE 1.52 mg/dL (0.60-1.30); POTASSIUM 3.5 mmol/L (3.5-5.1)
[2024-05-19] MEDS: AZITHROMYCIN 500 MG/NS 250 ML IV ONE (17:08)
[2024-05-19 17:09] LABS: COVID AG,FIA SOURCE NASAL SWAB
[2024-05-19 17:11] LABS: TROPONIN I-HIGH SENSITIVITY 17 ng/L (<76)
[2024-05-19 17:14] LABS: LACTIC ACID 2.8 mmol/L (0.4-2.0)
[2024-05-19 17:24] LABS: ALBUMIN 3.7 g/dL (3.4-5.0); BILIRUBIN,DIRECT 0.1 mg/dL (0.00-0.20); BILIRUBIN,TOTAL 0.5 mg/dL (0.1-1.0); TOTAL PROTEIN, SERUM 7.8 g/dL (6.4-8.2)
[2024-05-19 17:35] LABS: INFLUENZA TYPE B NEGATIVE FOR TYPE B (NEGATIVE); SARS-COV2 (COVID) ANTIGEN,FIA Negative (Negative)
[2024-05-19 17:45] LABS: INFLUENZA TYPE A POSITIVE FOR TYPE A (NEGATIVE)
[2024-05-19 20:03] VITALS: PULSE 90; RESP 20; O2SAT 96
[2024-05-19] MEDS: SODIUM CHLORIDE 0.9% 1,000 ML IV ONE (20:08)
[2024-05-19 20:17] VITALS: PULSE 88; RESP 20; O2SAT 100
[2024-05-19] MEDS ORDERED: MORPHINE SULFATE 2 MG/ML SYRINGE IVP PRN (21:30)
[2024-05-19] MEDS ORDERED: ZOLPIDEM TARTRATE 5 MG TABLET PO PRN (21:30)
[2024-05-19] MEDS ORDERED: ONDANSETRON HCL 4 MG/2 ML VIAL IVP PRN (21:30)
[2024-05-19] MEDS ORDERED: MAGNESIUM HYDROXIDE SUSPENSION 30 ML UDCUP PO PRN (21:30)
[2024-05-19] MEDS ORDERED: BISACODYL 10 MG RECTAL RECTAL SUPPOSITORY PR PRN (21:30)
[2024-05-19] MEDS ORDERED: ACETAMINOPHEN 325 MG TABLET PO PRN (21:30)
[2024-05-19] MEDS: MethylPREDNISolone SOD SUCC 125 MG/2 ML VIAL IVP SCH (23:12)
[2024-05-19] MEDS: HEPARIN SODIUM,PORCINE 5,000 UNITS/ML VIAL SQ SCH (23:40)
[2024-05-20] VITALS (15 sets, daily range): BP systolic 139–158; BP diastolic 85–92; PULSE 82–103; RESP 18–21; TEMP 98.1–99.1; O2SAT 91–100
[2024-05-20] MEDS: IPRATROPIUM BROMIDE 0.5 MG/2.5 ML NEB SOLUTION NEB SCH (02:15)
[2024-05-20] MEDS: ALBUTEROL SULFATE 2.5 MG/0.5 ML NEB SOLUTION NEB SCH (02:15)
[2024-05-20 07:18] LABS: BASOPHILS % (AUTO) 0.1 % (0.0-2.0); EOSINOPHILS % (AUTO) 0 % (1.0-6.0); HEMATOCRIT 44.5 % (41-53); HEMOGLOBIN 14.4 g/dL (13.5-17.5); LYMPHOCYTES # (AUTO) 0.4 K/uL (1.0-4.8); LYMPHOCYTES % (AUTO) 5.4 % (22.0-44.0); MEAN CORPUSCULAR HEMOGLOBIN 27.4 pg (26.0-34.0); MEAN CORPUSCULAR HGB CONC 32.3 G/dL (31.0-37.0); MEAN CORPUSCULAR VOLUME 85 fL (80-100); MONOCYTES # (AUTO) 0.3 K/uL (0.1-1.0); MONOCYTES % (AUTO) 3.8 % (2.0-9.0); NEUTROPHILS # (AUTO) 6.7 K/uL (1.8-7.7); PLATELET COUNT (AUTO) 190 K/uL (150-450); RED BLOOD CELL COUNT(AUTO) 5.25 MIL/uL (4.50-5.90); RED CELL DISTRIBUTION WIDTH 15.2 % (11.5-14.5); WHITE BLOOD COUNT (AUTO) 7.4 K/uL (4.5-11.0)
[2024-05-20 07:20] LABS: NEUTROPHILS % (AUTO) 90.7 % (40.0-70.0)
[2024-05-20 07:22] LABS: CALCIUM, TOTAL 8.6 mg/dL (8.8-10.5); CREATININE 1.46 mg/dL (0.60-1.30); POTASSIUM 4.5 mmol/L (3.5-5.1)
[2024-05-20] MEDS: BENZONATATE 100 MG CAPSULE PO SCH (08:59)
[2024-05-20] MEDS: DOCUSATE SODIUM 100 MG CAPSULE PO SCH (08:59)
[2024-05-20] MEDS: AmLODIPine BESYLATE 5 MG TABLET PO SCH (08:59)
[2024-05-20] MEDS: PANTOPRAZOLE SODIUM 40 MG DR TABLET PO SCH (09:00)
[2024-05-20] MEDS: GuaiFENesin SR 600 MG ER TABLET PO SCH (09:00)
[2024-05-20] MEDS: OSELTAMIVIR PHOSPHATE 30 MG CAPSULE PO SCH (12:43)
[2024-05-20] MEDS ORDERED: SODIUM CHLORIDE 0.9% 500 ML IV ONE ×2 (13:32→16:35)
[2024-05-20] MEDS: CefTRIAXone 1 GM/DEXTROSE 50 ML IV SCH (16:36)
[2024-05-20] MEDS: AZITHROMYCIN 500 MG/NS 250 ML IV SCH (17:45)
[2024-05-20] MEDS: HYDROCODONE/ACETAMINOPHEN 5-325 MG TABLET PO PRN (18:19)
[2024-05-20] MEDS: MethylPREDNISolone SOD SUCC 125 MG/2 ML VIAL IVP SCH (22:48)
[2024-05-20] MEDS: ALBUTEROL SULFATE 2.5 MG/0.5 ML NEB SOLUTION NEB PRN (23:32)
[2024-05-20] MEDS: IPRATROPIUM BROMIDE 0.5 MG/2.5 ML NEB SOLUTION NEB PRN (23:32)
[2024-05-21] VITALS (9 sets, daily range): BP systolic 128–153; BP diastolic 78–119; PULSE 79–94; RESP 18–20; TEMP 98–98.2; O2SAT 93–99
[2024-05-21 07:30] LABS: BASOPHILS % (AUTO) 0.2 % (0.0-2.0); EOSINOPHILS % (AUTO) 0 % (1.0-6.0); HEMATOCRIT 41.5 % (41-53); HEMOGLOBIN 13.8 g/dL (13.5-17.5); LYMPHOCYTES # (AUTO) 0.6 K/uL (1.0-4.8); MEAN CORPUSCULAR HEMOGLOBIN 27.6 pg (26.0-34.0); MEAN CORPUSCULAR HGB CONC 33.2 G/dL (31.0-37.0); MEAN CORPUSCULAR VOLUME 83 fL (80-100); MONOCYTES # (AUTO) 0.7 K/uL (0.1-1.0); MONOCYTES % (AUTO) 3.4 % (2.0-9.0); NEUTROPHILS # (AUTO) 19.8 K/uL (1.8-7.7); PLATELET COUNT (AUTO) 220 K/uL (150-450); RED BLOOD CELL COUNT(AUTO) 4.99 MIL/uL (4.50-5.90); RED CELL DISTRIBUTION WIDTH 15.2 % (11.5-14.5); WHITE BLOOD COUNT (AUTO) 21.2 K/uL (4.5-11.0)
[2024-05-21 07:31] LABS: NEUTROPHILS % (AUTO) 93.4 % (40.0-70.0)
[2024-05-21 07:35] LABS: CALCIUM, TOTAL 8.8 mg/dL (8.8-10.5); CREATININE 1.65 mg/dL (0.60-1.30)
[2024-05-21] MEDS ORDERED: AZIT-167 PO (11:07)
[2024-05-21] MEDS ORDERED: OSEL30CA PO (11:08)
[2024-05-21] MEDS ORDERED: ALBU2.5V39 NEB (11:09)
== END 2024-05-21 17:05 | disposition home or self-care (01) | DRG 140 ==
LOC: EMS 16:01 → EDH 21:30 → 5N 05-20 00:43
PROVIDERS: ADMIT Internal Medicine; ATTEND Internal Medicine
DX: J44.1 Chronic obstructive pulmonary disease with (acute) exacerbation (principal); J96.91 Respiratory failure, unspecified with hypoxia; J10.00 Influenza due to other identified influenza virus with unspecified type of pneumonia; J44.0 Chronic obstructive pulmonary disease with (acute) lower respiratory infection; N17.9 Acute kidney failure, unspecified; Z20.822 Contact with and (suspected) exposure to COVID-19; I12.9 Hypertensive chronic kidney disease with stage 1 through stage 4 chronic kidney disease, or unspecified chronic kidney disease; N18.2 Chronic kidney disease, stage 2 (mild); Z79.899 Other long term (current) drug therapy
CPT/HCPCS: 71045; 80048; 80076; 82550; 83605; 83880; 84484; 85025; 87040; 87804; 93005; 94640; 99285; G0378; J0131; J0456; J0696; J1644; J2919; J7030; J7040; 36415-L1; 36415-TC; J7613

== ENCOUNTER → 2024-07-26 | Emergency (ER) | payer OTHER ==
[~2024-07-26] VITALS: Ht 170.2 cm; Wt 70.5 kg
[~2024-07-26] MED LIST changes: +IPRA3AMP24 NEB; -PRED-554 PO; +PRED10TA3 PO
[2024-07-26 22:01] VITALS: BP 154/96; PULSE 97; RESP 19; TEMP 97.8; O2SAT 98
== END | disposition home or self-care (01) ==
LOC: EMS 21:52
DX: J45.901 Unspecified asthma with (acute) exacerbation (principal); Z76.0 Encounter for issue of repeat prescription; Z79.51 Long term (current) use of inhaled steroids; Z79.52 Long term (current) use of systemic steroids; Z79.899 Other long term (current) drug therapy
CPT/HCPCS: 99281; 99283

== ENCOUNTER 2024-07-27 00:13 | Inpatient (IN) | payer OTHER ==
[2024-07-27] VITALS (22 sets, daily range): BP systolic 102–151; BP diastolic 65–90; PULSE 67–128; RESP 20; TEMP 95.8–98.6; O2SAT 95–100
[~2024-07-27] VITALS: Ht 172.7 cm; Wt 63.1 kg
[2024-07-27 01:13] LABS: BASOPHILS % (AUTO) 0.3 % (0.0-2.0); EOSINOPHILS % (AUTO) 0.2 % (1.0-6.0); HEMATOCRIT 39.3 % (41-53); HEMOGLOBIN 12.8 g/dL (13.5-17.5); LYMPHOCYTES # (AUTO) 2.2 K/uL (1.0-4.8); LYMPHOCYTES % (AUTO) 12.5 % (22.0-44.0); MEAN CORPUSCULAR HEMOGLOBIN 27.6 pg (26.0-34.0); MEAN CORPUSCULAR HGB CONC 32.4 G/dL (31.0-37.0); MEAN CORPUSCULAR VOLUME 85 fL (80-100); MONOCYTES # (AUTO) 1.2 K/uL (0.1-1.0); MONOCYTES % (AUTO) 6.8 % (2.0-9.0); NEUTROPHILS # (AUTO) 14.4 K/uL (1.8-7.7); NEUTROPHILS % (AUTO) 80.2 % (40.0-70.0); PLATELET COUNT (AUTO) 323 K/uL (150-450); RED BLOOD CELL COUNT(AUTO) 4.62 MIL/uL (4.50-5.90); RED CELL DISTRIBUTION WIDTH 15.8 % (11.5-14.5); WHITE BLOOD COUNT (AUTO) 17.9 K/uL (4.5-11.0)
[2024-07-27 01:21] LABS: CALCIUM, TOTAL 8.5 mg/dL (8.8-10.5); CREATININE 1.62 mg/dL (0.60-1.30); POTASSIUM 4.3 mmol/L (3.5-5.1)
[2024-07-27 01:25] LABS: ALBUMIN 3.3 g/dL (3.4-5.0); BILIRUBIN,TOTAL 0.4 mg/dL (0.1-1.0); CHOL/HDL RATIO 3.9 (4.2-7.3); TOTAL PROTEIN, SERUM 6.7 g/dL (6.4-8.2)
[2024-07-27] MEDS: ALBUTEROL SULFATE 2.5 MG/0.5 ML NEB SOLUTION NEB ONE (01:27)
[2024-07-27] MEDS: IPRATROPIUM BROMIDE 0.5 MG/2.5 ML NEB SOLUTION NEB ONE (01:27)
[2024-07-27 01:30] LABS: TROPONIN I-HIGH SENSITIVITY 16 ng/L (<76)
[2024-07-27 01:31] LABS: LACTIC ACID 4.2 mmol/L (0.4-2.0)
[2024-07-27] MEDS: PROPOFOL 1000 MG/ISO-OSM 100 ML IV PRN ×2 (01:31→17:47)
[2024-07-27] MEDS: LevETIRAcetam 1,000 MG in DEXTROSE 5%-WATER 100 ML IV ONE (01:31)
[2024-07-27 01:32] LABS: PROTHROMBIN TIME 10.8 SEC (9.4-11.6)
[2024-07-27 01:43] LABS: ABG CARBOXYHEMOGLOBIN 0.3 % (0.5-1.5); ABG HCO3 24.1 mmol/L (21.0-28.0); ABG METHEMOGLOBIN 0.8 % (0.0-1.5); ABG OXYGEN CONTENT 22.1 mL/dL (15.0-23.0); ABG OXYGEN SATURATION 99.7 % (94.0-98.0); ABG OXYHEMOGLOBIN 98.6 % (94.0-98.0); ABG PCO2 47 mmHg (32.0-48.0); ABG PH 7.355 (7.350-7.450); ABG TOTAL HEMOGLOBIN 14.8 G/dL (13.5-17.5); ALLEN TEST, BLOOD GAS Positive; SITE, BLOOD GAS RT RADIAL; SOURCE, BLOOD GAS ARTERIAL; TEMPERATURE, FAHRENHEIT, BG 98.2 FAHREN (96.0-98.6)
[2024-07-27 01:43] LABS: AMPHET/METH SCREEN,URINE POSITIVE (NEGATIVE); BARBITURATE SCREEN, URINE NEGATIVE (NEGATIVE); BENZODIAZEPINES SCREEN,URINE NEGATIVE (NEGATIVE); CANNABINOID SCREEN,URINE NEGATIVE (NEGATIVE); COCAINE SCREEN,URINE NEGATIVE (NEGATIVE); METHADONE SCREEN, URINE NEGATIVE (NEGATIVE); OPIATE SCREEN,URINE NEGATIVE (NEGATIVE); PHENCYCLIDINE SCREEN,URINE NEGATIVE (NEGATIVE)
[2024-07-27 01:44] LABS: ALCOHOL, URINE DRUG SCREEN NEGATIVE (NEGATIVE)
[2024-07-27 01:44] LABS: ABG A-A DIFF O2 89.9 mmHg (10-20.0); O2 DEVICE,BLOOD GAS VENT (ROOM AIR); PEEP,BG 5 cm H2O; VT, ABG 450 ml
[2024-07-27 01:45] LABS: B-TYPE NATRIURETIC PEPTIDE 24 pg/mL (0-100)
[2024-07-27] MEDS: SODIUM CHLORIDE 0.9% 2,000 ML IV ONE (01:50)
[2024-07-27] MEDS: CefTRIAXone 1 GM/DEXTROSE 50 ML IV ONE (01:50)
[2024-07-27 02:03] LABS: CREATINE KINASE, TOTAL ONLY 210 U/L (39-308); LIPASE 28 U/L (16-77); TROPONIN I-HIGH SENSITIVITY 17 ng/L (<76)
[2024-07-27 02:04] LABS: APPEARANCE,URINE CLEAR (CLEAR); BILIRUBIN,URINE NEGATIVE (NEGATIVE); COLOR,URINE COLORLESS (YELLOW); GLUCOSE, URINE (UA) 300-500 mg/dL (NEGATIVE); KETONES,URINE NEGATIVE (NEGATIVE); LEUKOCYTE ESTERASE ,URINE NEGATIVE (NEGATIVE); NITRATE,URINE NEGATIVE (NEGATIVE); OCCULT BLOOD,URINE SMALL (NEGATIVE); PH,URINE 6.5 (5.0-8.0); PH,URINE DRUG SCREEN 6.5 (5.0-8.0); PROTEIN,URINE 30-70 mg/dL (NEGATIVE); SPECIFIC GRAVITIY, URINE 1.022 (1.003-1.030); UROBILINOGEN,URINE <=1.0 mg/dL (<=1.0)
[2024-07-27 02:04] LABS: ALCOHOL, BLOOD (SERUM) < 3 mg/dL (0-10)
[2024-07-27 02:10] LABS: COVID AG,FIA SOURCE NASAL SWAB
[2024-07-27] MEDS: LABETALOL HCL 5 MG/ML 20 ML VIAL IVP ONE ×2 (02:23→03:36)
[2024-07-27] MEDS: FentaNYL CIT 1000MCG/0.9% NACL 100 ML IV PRN ×2 (02:24→17:47)
[2024-07-27 03:17] LABS: BACTERIA,URINE Few /HPF (None Seen); RBC,URINE 0-2 /HPF (0-2); WBC,URINE 0-2 /HPF (0-5)
[2024-07-27] MEDS ORDERED: ONDANSETRON HCL 4 MG/2 ML VIAL IVP PRN (03:30)
[2024-07-27] MEDS ORDERED: DEXMEDETOMIDINE 400 MCG/NS 100 ML IV PRN (03:30)
[2024-07-27 03:54] LABS: SARS-COV2 (COVID) ANTIGEN,FIA Negative (Negative)
[2024-07-27 03:55] LABS: INFLUENZA TYPE A NEGATIVE FOR TYPE A (NEGATIVE); INFLUENZA TYPE B NEGATIVE FOR TYPE B (NEGATIVE)
[2024-07-27] MEDS: HEPARIN SODIUM,PORCINE 5,000 UNITS/ML VIAL SQ SCH (08:07)
[2024-07-27] MEDS: ETHYL ALCOHOL 62% ANTISEPTIC NASAL SANITIZER 0.6 ML AMPUL NASAL SCH (08:07)
[2024-07-27] MEDS: LevETIRAcetam 250 MG TABLET PO SCH (08:10)
[2024-07-27] MEDS: PANTOPRAZOLE SODIUM 40 MG/VIAL IVP SCH (08:14)
[2024-07-27] MEDS: MethylPREDNISolone SOD SUCC 125 MG/2 ML VIAL IVP SCH (08:14)
[2024-07-27] MEDS: IPRATROPIUM BROMIDE 0.5 MG/2.5 ML NEB SOLUTION NEB SCH (08:20)
[2024-07-27] MEDS: ALBUTEROL SULFATE 2.5 MG/0.5 ML NEB SOLUTION NEB SCH (08:20)
[2024-07-27] MEDS: PIPERACILLIN/TAZO 3.375 GM/D5W 50 ML IV SCH (10:46)
[2024-07-27] MEDS ORDERED: SODIUM CHLORIDE 0.9% 250 ML IV ONE (10:50)
[2024-07-27 13:17] LABS: TROPONIN I-HIGH SENSITIVITY 56 ng/L (<76)
[2024-07-27] MEDS: SODIUM CHLORIDE 0.9% 500 ML IV ONE (20:26)
[2024-07-27] MEDS: CHLORHEXIDINE GLUCONATE 2% TOWELETTE [2'S/6'S] TP SCH (21:37)
[2024-07-28] VITALS (19 sets, daily range): BP systolic 104–162; BP diastolic 60–90; PULSE 61–84; RESP 10–22; TEMP 97.2–99.1; O2SAT 74–100
[2024-07-28 05:59] LABS: BASOPHILS % (AUTO) 0.1 % (0.0-2.0); EOSINOPHILS % (AUTO) 0.1 % (1.0-6.0); HEMATOCRIT 41.3 % (41-53); HEMOGLOBIN 12.7 g/dL (13.5-17.5); LYMPHOCYTES # (AUTO) 1.2 K/uL (1.0-4.8); MEAN CORPUSCULAR HEMOGLOBIN 27.1 pg (26.0-34.0); MEAN CORPUSCULAR HGB CONC 30.8 G/dL (31.0-37.0); MEAN CORPUSCULAR VOLUME 88 fL (80-100); MONOCYTES # (AUTO) 0.7 K/uL (0.1-1.0); MONOCYTES % (AUTO) 5.2 % (2.0-9.0); NEUTROPHILS # (AUTO) 11.4 K/uL (1.8-7.7); PLATELET COUNT (AUTO) 243 K/uL (150-450); RED BLOOD CELL COUNT(AUTO) 4.69 MIL/uL (4.50-5.90); RED CELL DISTRIBUTION WIDTH 16.8 % (11.5-14.5); WHITE BLOOD COUNT (AUTO) 13.3 K/uL (4.5-11.0)
[2024-07-28 06:07] LABS: CALCIUM, TOTAL 8.7 mg/dL (8.8-10.5); CREATININE 1.83 mg/dL (0.60-1.30); MAGNESIUM 2.4 mg/dL (1.80-2.40); POTASSIUM 4.8 mmol/L (3.5-5.1)
[2024-07-28 06:09] LABS: NEUTROPHILS % (AUTO) 85.6 % (40.0-70.0)
[2024-07-28] MEDS ORDERED: SODIUM CHLORIDE 0.9% 250 ML IV ONE (06:31)
[2024-07-28 13:11] LABS: ABG A-A DIFF O2 77.9 mmHg (10-20.0); ABG BASE EXCESS -1.3 mmol/L (-2.0-3.0); ABG CARBOXYHEMOGLOBIN 0.3 % (0.5-1.5); ABG HCO3 23.6 mmol/L (21.0-28.0); ABG METHEMOGLOBIN 0.2 % (0.0-1.5); ABG OXYGEN CONTENT 17.8 mL/dL (15.0-23.0); ABG OXYGEN SATURATION 96.9 % (94.0-98.0); ABG OXYHEMOGLOBIN 96.4 % (94.0-98.0); ABG PCO2 39 mmHg (32.0-48.0); ABG PH 7.401 (7.350-7.450); ABG TOTAL HEMOGLOBIN 13.1 G/dL (13.5-17.5); ALLEN TEST, BLOOD GAS Positive; O2 DEVICE,BLOOD GAS VENTILATOR (ROOM AIR); PO2, ARTERIAL BG 90.2 mmHg (83.0-108.0); SITE, BLOOD GAS RT RADIAL; SOURCE, BLOOD GAS ARTERIAL; TEMPERATURE, FAHRENHEIT, BG 99.1 FAHREN (96.0-98.6)
[2024-07-28 13:12] LABS: PEEP,BG 5 cm H2O; PRESSURE SUPPORT, BG 5 cm H2O; SPONTANEOUS VT, BG 679 ml; VENT MODE, BG CPAP (ROOM AIR)
[2024-07-28] MEDS: CloNIDine 0.2 MG/24 HOUR PATCH TD ONE (18:18)
[2024-07-28] MEDS: AmLODIPine BESYLATE 5 MG TABLET PO SCH (18:18)
[2024-07-29] VITALS (21 sets, daily range): BP systolic 110–134; BP diastolic 62–87; PULSE 61–105; RESP 12–23; TEMP 97.7–99; O2SAT 93–100
[2024-07-29 00:06] LABS: GLUCOMETER DEV NAME(LOC) ICUN.5; GLUCOSE,POINT OF CARE 114 MG/DL (70-110)
[2024-07-29 05:36] LABS: BASOPHILS % (AUTO) 0.1 % (0.0-2.0); EOSINOPHILS % (AUTO) 0 % (1.0-6.0); HEMATOCRIT 38.5 % (41-53); HEMOGLOBIN 12.4 g/dL (13.5-17.5); LYMPHOCYTES # (AUTO) 0.9 K/uL (1.0-4.8); LYMPHOCYTES % (AUTO) 5.4 % (22.0-44.0); MEAN CORPUSCULAR HEMOGLOBIN 27.2 pg (26.0-34.0); MEAN CORPUSCULAR HGB CONC 32.2 G/dL (31.0-37.0); MEAN CORPUSCULAR VOLUME 84 fL (80-100); MONOCYTES # (AUTO) 1.2 K/uL (0.1-1.0); MONOCYTES % (AUTO) 7.3 % (2.0-9.0); NEUTROPHILS # (AUTO) 14.6 K/uL (1.8-7.7); PLATELET COUNT (AUTO) 277 K/uL (150-450); RED BLOOD CELL COUNT(AUTO) 4.57 MIL/uL (4.50-5.90); RED CELL DISTRIBUTION WIDTH 15.9 % (11.5-14.5); WHITE BLOOD COUNT (AUTO) 16.7 K/uL (4.5-11.0)
[2024-07-29 05:51] LABS: ALBUMIN 2.6 g/dL (3.4-5.0); BILIRUBIN,TOTAL 0.4 mg/dL (0.1-1.0); CALCIUM, TOTAL 8.7 mg/dL (8.8-10.5); CREATININE 1.68 mg/dL (0.60-1.30); POTASSIUM 4.2 mmol/L (3.5-5.1); TOTAL PROTEIN, SERUM 6.1 g/dL (6.4-8.2)
[2024-07-29 05:52] LABS: NEUTROPHILS % (AUTO) 87.2 % (40.0-70.0)
[2024-07-29 11:50] LABS: ABG BASE EXCESS 2.4 mmol/L (-2.0-3.0); ABG CARBOXYHEMOGLOBIN 0.1 % (0.5-1.5); ABG HCO3 26.3 mmol/L (21.0-28.0); ABG METHEMOGLOBIN 0.1 % (0.0-1.5); ABG OXYGEN CONTENT 17.7 mL/dL (15.0-23.0); ABG OXYGEN SATURATION 94.5 % (94.0-98.0); ABG OXYHEMOGLOBIN 94.3 % (94.0-98.0); ABG PCO2 42 mmHg (32.0-48.0); ABG PH 7.423 (7.350-7.450); ABG TOTAL HEMOGLOBIN 13.3 G/dL (13.5-17.5); PO2, ARTERIAL BG 74.7 mmHg (83.0-108.0); SOURCE, BLOOD GAS ARTERIAL; TEMPERATURE, FAHRENHEIT, BG 98.8 FAHREN (96.0-98.6)
[2024-07-29 11:53] LABS: ABG A-A DIFF O2 89.7 mmHg (10-20.0); ALLEN TEST, BLOOD GAS Positive; O2 DEVICE,BLOOD GAS VENTILATOR (ROOM AIR); SITE, BLOOD GAS LFT RADIAL
[2024-07-29 11:54] LABS: VENT MODE, BG SPONTANEOUS (ROOM AIR)
[2024-07-29 11:55] LABS: CPAP, BG 5 cm H2O; PRESSURE SUPPORT, BG 8 cm H2O; SPONTANEOUS VT, BG 565 ml
[2024-07-29] MEDS: MethylPREDNISolone SOD SUCC 125 MG/2 ML VIAL IVP SCH (14:24)
[2024-07-29] MEDS: ROCURONIUM BROMIDE 10 MG/ML 5 ML VIAL IVP ONE (19:42)
[2024-07-29] MEDS: ETOMIDATE 2 MG/ML 10 ML VIAL IVP ONE (19:42)
[2024-07-29 20:10] LABS: ABG BASE EXCESS 4.5 mmol/L (-2.0-3.0); ABG CARBOXYHEMOGLOBIN 0.4 % (0.5-1.5); ABG HCO3 27.4 mmol/L (21.0-28.0); ABG METHEMOGLOBIN 0.2 % (0.0-1.5); ABG OXYGEN CONTENT 19.3 mL/dL (15.0-23.0); ABG OXYGEN SATURATION 99.3 % (94.0-98.0); ABG OXYHEMOGLOBIN 98.7 % (94.0-98.0); ABG PCO2 55 mmHg (32.0-48.0); ABG PH 7.354 (7.350-7.450); ABG TOTAL HEMOGLOBIN 13.7 G/dL (13.5-17.5); PO2, ARTERIAL BG 169.6 mmHg (83.0-108.0); SOURCE, BLOOD GAS ARTERIAL; TEMPERATURE, FAHRENHEIT, BG 98.6 FAHREN (96.0-98.6)
[2024-07-29 20:11] LABS: ALLEN TEST, BLOOD GAS Positive; SITE, BLOOD GAS RT RADIAL
[2024-07-29 20:12] LABS: ABG A-A DIFF O2 342.8 mmHg (10-20.0); O2 DEVICE,BLOOD GAS VENTILATOR (ROOM AIR); PEEP,BG 5 cm H2O; SPONTANEOUS VT, BG 438 ml; VT, ABG 450 ml
[2024-07-30] VITALS (16 sets, daily range): BP systolic 99–140; BP diastolic 61–81; PULSE 60–77; RESP 16–22; TEMP 97.5–99.8; O2SAT 94–100
[2024-07-30 00:01] LABS: GLUCOMETER DEV NAME(LOC) ICUN.5; GLUCOSE,POINT OF CARE 136 MG/DL (70-110)
[2024-07-30 06:21] LABS: BASOPHILS % (AUTO) 0.3 % (0.0-2.0); EOSINOPHILS % (AUTO) 0 % (1.0-6.0); HEMATOCRIT 37.1 % (41-53); HEMOGLOBIN 12.1 g/dL (13.5-17.5); LYMPHOCYTES # (AUTO) 0.7 K/uL (1.0-4.8); LYMPHOCYTES % (AUTO) 4.1 % (22.0-44.0); MEAN CORPUSCULAR HEMOGLOBIN 27.4 pg (26.0-34.0); MEAN CORPUSCULAR HGB CONC 32.5 G/dL (31.0-37.0); MEAN CORPUSCULAR VOLUME 84 fL (80-100); MONOCYTES # (AUTO) 1.2 K/uL (0.1-1.0); MONOCYTES % (AUTO) 7.1 % (2.0-9.0); NEUTROPHILS # (AUTO) 14.5 K/uL (1.8-7.7); PLATELET COUNT (AUTO) 269 K/uL (150-450); RED BLOOD CELL COUNT(AUTO) 4.41 MIL/uL (4.50-5.90); RED CELL DISTRIBUTION WIDTH 15.7 % (11.5-14.5); WHITE BLOOD COUNT (AUTO) 16.4 K/uL (4.5-11.0)
[2024-07-30 06:26] LABS: NEUTROPHILS % (AUTO) 88.5 % (40.0-70.0)
[2024-07-30 06:37] LABS: ALBUMIN 2.5 g/dL (3.4-5.0); BILIRUBIN,TOTAL 0.3 mg/dL (0.1-1.0); CALCIUM, TOTAL 8.5 mg/dL (8.8-10.5); CREATININE 1.62 mg/dL (0.60-1.30); POTASSIUM 4.4 mmol/L (3.5-5.1)
[2024-07-31] VITALS (21 sets, daily range): BP systolic 113–163; BP diastolic 65–91; PULSE 59–88; RESP 6–22; TEMP 99–100; O2SAT 93–97
[2024-07-31 05:31] LABS: BASOPHILS % (AUTO) 0.1 % (0.0-2.0); EOSINOPHILS % (AUTO) 0 % (1.0-6.0); HEMATOCRIT 36.4 % (41-53); HEMOGLOBIN 11.8 g/dL (13.5-17.5); LYMPHOCYTES # (AUTO) 0.5 K/uL (1.0-4.8); LYMPHOCYTES % (AUTO) 3.1 % (22.0-44.0); MEAN CORPUSCULAR HEMOGLOBIN 27.4 pg (26.0-34.0); MEAN CORPUSCULAR HGB CONC 32.5 G/dL (31.0-37.0); MEAN CORPUSCULAR VOLUME 85 fL (80-100); MONOCYTES # (AUTO) 1.3 K/uL (0.1-1.0); NEUTROPHILS # (AUTO) 14.3 K/uL (1.8-7.7); PLATELET COUNT (AUTO) 276 K/uL (150-450); RED BLOOD CELL COUNT(AUTO) 4.31 MIL/uL (4.50-5.90); RED CELL DISTRIBUTION WIDTH 16.2 % (11.5-14.5); WHITE BLOOD COUNT (AUTO) 16.1 K/uL (4.5-11.0)
[2024-07-31 05:42] LABS: NEUTROPHILS % (AUTO) 88.8 % (40.0-70.0)
[2024-07-31 05:54] LABS: CALCIUM, TOTAL 8.4 mg/dL (8.8-10.5); CREATININE 1.85 mg/dL (0.60-1.30); POTASSIUM 4.4 mmol/L (3.5-5.1)
[2024-07-31] MEDS: DEXMEDETOMIDINE 400 MCG/NS 100 ML IV PRN (08:02)
[2024-07-31 11:49] LABS: ABG BASE EXCESS 3.6 mmol/L (-2.0-3.0); ABG CARBOXYHEMOGLOBIN 0.1 % (0.5-1.5); ABG HCO3 27.5 mmol/L (21.0-28.0); ABG METHEMOGLOBIN 0.1 % (0.0-1.5); ABG OXYGEN CONTENT 18.2 mL/dL (15.0-23.0); ABG OXYGEN SATURATION 97.1 % (94.0-98.0); ABG OXYHEMOGLOBIN 96.9 % (94.0-98.0); ABG PCO2 41 mmHg (32.0-48.0); ABG PH 7.448 (7.350-7.450); ABG TOTAL HEMOGLOBIN 13.3 G/dL (13.5-17.5); ALLEN TEST, BLOOD GAS Positive; PO2, ARTERIAL BG 96.8 mmHg (83.0-108.0); SITE, BLOOD GAS RT RADIAL; SOURCE, BLOOD GAS ARTERIAL; TEMPERATURE, FAHRENHEIT, BG 99.3 FAHREN (96.0-98.6)
[2024-07-31 11:50] LABS: ABG A-A DIFF O2 141.1 mmHg (10-20.0); CPAP, BG 5 cm H2O; O2 DEVICE,BLOOD GAS VENTILATOR (ROOM AIR); PRESSURE SUPPORT, BG 8 cm H2O; SPONTANEOUS VT, BG 1124 ml; VENT MODE, BG CPAP (ROOM AIR)
[2024-07-31] MEDS: HydrALAZINE HCL 20 MG/ML VIAL IVP PRN (13:19)
[2024-08-01] VITALS (18 sets, daily range): BP systolic 116–153; BP diastolic 65–80; PULSE 42–85; RESP 14–24; TEMP 98–99; O2SAT 96–100
[2024-08-01] MEDS ORDERED: IPRATROPIUM BROMIDE 0.5 MG/2.5 ML NEB SOLUTION NEB PRN (10:15)
[2024-08-01] MEDS ORDERED: ALBUTEROL SULFATE 2.5 MG/0.5 ML NEB SOLUTION NEB PRN (10:15)
[2024-08-01] MEDS ORDERED: EPINEPHrine 1:10,000 [1 MG/10 ML] SYRINGE ONE (12:00)
[2024-08-01] MEDS ORDERED: MAGNESIUM SULF/STERILE WATER 4 GM/100 ML IV BAG IV ONE (12:00)
[2024-08-01] MEDS ORDERED: 0.9% SODIUM CHLORIDE 250 ML BAG IV ONE (12:00)
[2024-08-02] VITALS (17 sets, daily range): BP systolic 140–158; BP diastolic 65–80; PULSE 43–68; RESP 10–27; TEMP 98.3–98.6; O2SAT 96–100
[2024-08-02 06:15] LABS: HEMATOCRIT 36.8 % (41-53); HEMOGLOBIN 11.8 g/dL (13.5-17.5); MEAN CORPUSCULAR HEMOGLOBIN 27.3 pg (26.0-34.0); MEAN CORPUSCULAR VOLUME 85 fL (80-100); PLATELET COUNT (AUTO) 256 K/uL (150-450); RED BLOOD CELL COUNT(AUTO) 4.31 MIL/uL (4.50-5.90); RED CELL DISTRIBUTION WIDTH 16.1 % (11.5-14.5); WHITE BLOOD COUNT (AUTO) 16.7 K/uL (4.5-11.0)
[2024-08-02 06:23] LABS: ANION GAP 6 mmol/L (8-16); CALCIUM, TOTAL 8.8 mg/dL (8.8-10.5); CARBON DIOXIDE 30 mmol/L (22-29); CHLORIDE 110 mmol/L (98-107); CREATININE 1.42 mg/dL (0.60-1.30); GLOMERULAR FILTR. RATE CALC > 60 mL/min (>60); GLUCOSE,RANDOM 175 mg/dL (70-110); POTASSIUM 4.4 mmol/L (3.5-5.1); SODIUM SERUM 146 mmol/L (136-145); UREA NITROGEN, BLOOD 50 mg/dL (7-18)
[2024-08-02 07:07] LABS: BAND NEUTROPHILS % (MANUAL) 1 % (0-5); LYMPHOCYTES % (MANUAL) 7 % (22-44); MONOCYTES % (MANUAL) 4 % (2-9); SEGMENTED NEUTROPHILS % 88 % (40-70); TOTAL CELLS COUNTED 100
[2024-08-02] MEDS ORDERED: LORazepam 2 MG/ML VIAL IVP PRN (08:00)
[2024-08-02 12:27] LABS: ABG CARBOXYHEMOGLOBIN 0.5 % (0.5-1.5); ABG HCO3 28.4 mmol/L (21.0-28.0); ABG OXYGEN CONTENT 16.4 mL/dL (15.0-23.0); ABG OXYGEN SATURATION 92.3 % (94.0-98.0); ABG OXYHEMOGLOBIN 91.8 % (94.0-98.0); ABG PCO2 43 mmHg (32.0-48.0); ABG PH 7.448 (7.350-7.450); ABG TOTAL HEMOGLOBIN 12.7 G/dL (13.5-17.5); PO2, ARTERIAL BG 65.7 mmHg (83.0-108.0); SOURCE, BLOOD GAS ARTERIAL; TEMPERATURE, FAHRENHEIT, BG 98.6 FAHREN (96.0-98.6)
[2024-08-02 12:30] LABS: ABG A-A DIFF O2 170.2 mmHg (10-20.0); ALLEN TEST, BLOOD GAS Positive; O2 DEVICE,BLOOD GAS VENTILATOR (ROOM AIR); SITE, BLOOD GAS RT RADIAL; VENT MODE, BG CPAP (ROOM AIR)
[2024-08-02 12:32] LABS: CPAP, BG 0 cm H2O; PRESSURE SUPPORT, BG 8 cm H2O; SPONTANEOUS VT, BG 500 ml
[2024-08-03] VITALS (16 sets, daily range): BP systolic 132–156; BP diastolic 62–142; PULSE 48–84; RESP 16–20; TEMP 97.9–98.8; O2SAT 72–100
[2024-08-03 06:15] LABS: GLUCOMETER DEV NAME(LOC) ICUN.5; GLUCOSE,POINT OF CARE 130 MG/DL (70-110)
[2024-08-03 06:23] LABS: HEMATOCRIT 36.7 % (41-53); HEMOGLOBIN 11.8 g/dL (13.5-17.5); MEAN CORPUSCULAR HEMOGLOBIN 27.4 pg (26.0-34.0); MEAN CORPUSCULAR HGB CONC 32.2 G/dL (31.0-37.0); MEAN CORPUSCULAR VOLUME 85 fL (80-100); PLATELET COUNT (AUTO) 255 K/uL (150-450); RED BLOOD CELL COUNT(AUTO) 4.32 MIL/uL (4.50-5.90); RED CELL DISTRIBUTION WIDTH 15.9 % (11.5-14.5); WHITE BLOOD COUNT (AUTO) 19.4 K/uL (4.5-11.0)
[2024-08-03 06:39] LABS: BASOPHILS % (AUTO) 0.3 % (0.0-2.0); EOSINOPHILS % (AUTO) 0 % (1.0-6.0); LYMPHOCYTES # (AUTO) 0.9 K/uL (1.0-4.8); LYMPHOCYTES % (AUTO) 4.4 % (22.0-44.0); MONOCYTES # (AUTO) 1.9 K/uL (0.1-1.0); MONOCYTES % (AUTO) 9.4 % (2.0-9.0); NEUTROPHILS # (AUTO) 17.1 K/uL (1.8-7.7)
[2024-08-03 06:42] LABS: ALANINE AMINOTRANSFERASE 96 U/L (12-78); ALBUMIN 2.4 g/dL (3.4-5.0); ALKALINE PHOSPHATASE 39 U/L (46-116); ANION GAP 8 mmol/L (8-16); ASPARTATE AMINOTRANSFERASE 61 U/L (15-37); BILIRUBIN,TOTAL 0.8 mg/dL (0.1-1.0); CARBON DIOXIDE 27 mmol/L (22-29); CHLORIDE 106 mmol/L (98-107); CREATININE 1.32 mg/dL (0.60-1.30); GLOMERULAR FILTR. RATE CALC > 60 mL/min (>60); GLUCOSE,RANDOM 140 mg/dL (70-110); POTASSIUM 4.4 mmol/L (3.5-5.1); SODIUM SERUM 140 mmol/L (136-145); TOTAL PROTEIN, SERUM 6.1 g/dL (6.4-8.2); UREA NITROGEN, BLOOD 44 mg/dL (7-18)
[2024-08-03 07:49] LABS: NEUTROPHILS % (AUTO) 85.9 % (40.0-70.0)
[2024-08-03] MEDS ORDERED: SODIUM CHLORIDE 0.9% 500 ML IV ONE (12:09)
[2024-08-03] MEDS: MethylPREDNISolone SOD SUCC 40 MG/ML VIAL IVP SCH (12:14)
[2024-08-03] MEDS: ACETAMINOPHEN 325 MG TABLET PO PRN (22:20)
[2024-08-04] VITALS (13 sets, daily range): BP systolic 125–172; BP diastolic 68–88; PULSE 49–70; RESP 18–20; TEMP 97.9–98.7; O2SAT 92–100
[2024-08-05] VITALS (13 sets, daily range): BP systolic 122–158; BP diastolic 63–97; PULSE 47–80; RESP 16–19; TEMP 98–99.1; O2SAT 97–100
[2024-08-05] MEDS: PredniSONE 20 MG TABLET PO SCH (09:35)
[2024-08-06] VITALS (9 sets, daily range): BP systolic 118–151; BP diastolic 57–85; PULSE 53–79; RESP 18; TEMP 98.1–98.8; O2SAT 97–100
[2024-08-06] MEDS ORDERED: LEVE250T81 PO (15:20)
[2024-08-06] MEDS ORDERED: ALBU18HF12 IH (15:20)
[2024-08-06] MEDS ORDERED: IPRA3AMP24 NEB (15:20)
[2024-08-06] MEDS ORDERED: PRED-729 PO (15:20)
[2024-08-06] MEDS ORDERED: AMOX-457 PO (15:20)
== END 2024-08-06 20:00 | disposition home or self-care (01) | DRG 130 ==
LOC: EMS 00:13 → EDH 03:21 → ICU 05:27 → 5N 08-03 11:15
PROVIDERS: ADMIT Internal Medicine; ATTEND Internal Medicine
PROC: 5A1955Z Respiratory Ventilation, Greater than 96 Consecutive Hours (ICD-10-PCS; principal; 2024-07-27)
PROC: 0BH17EZ Insertion of Endotracheal Airway into Trachea, Via Natural or Artificial Opening (ICD-10-PCS; 2024-07-27)
PROC: 0B21XEZ Change Endotracheal Airway in Trachea, External Approach (ICD-10-PCS; 2024-07-29)
PROC: 5A12012 Performance of Cardiac Output, Single, Manual (ICD-10-PCS; 2024-07-29)
DX: J96.01 Acute respiratory failure with hypoxia (principal); N17.0 Acute kidney failure with tubular necrosis; J69.0 Pneumonitis due to inhalation of food and vomit; G93.40 Encephalopathy, unspecified; N17.9 Acute kidney failure, unspecified; J45.901 Unspecified asthma with (acute) exacerbation; R56.9 Unspecified convulsions; Z20.822 Contact with and (suspected) exposure to COVID-19; N18.30 Chronic kidney disease, stage 3 unspecified; D72.829 Elevated white blood cell count, unspecified; E78.5 Hyperlipidemia, unspecified; R00.1 Bradycardia, unspecified; F15.10 Other stimulant abuse, uncomplicated; Z91.018 Allergy to other foods; Z79.899 Other long term (current) drug therapy
CPT/HCPCS: 31500; 36600; 51702; 70450; 70496; 70498; 71045; 72125; 80048; 80053; 80061; 80307; 81001; 82550; 82805; 82948; 82962; 83605; 83690; 83735; 83880; 84484; 85025; 85610; 85730; 86850; 86900; 86901; 87040; 87081; 87804; 92526; 92610; 92950; 93005; 94002; 94003; 94640; 94644; 96365; 96368; 96375; 97116; 97163; 97166; 97530; 99285; G0480; J0171; J0360; J0696; J0712; J1644; J2470; J2543; J2704; J2919; J3010; J3475; J3490; J7030; J7040; J7050; J7060; 36415-L1; 36415-TC; J7613

== ENCOUNTER 2024-09-04 05:48 | Emergency (ER) | payer OTHER ==
[~2024-09-04] VITALS: Ht 167.6 cm; Wt 77.3 kg
[~2024-09-04 05:48] MED LIST changes: +AMOX-457 PO; +LEVE250T81 PO; +PRED-729 PO; -PRED10TA3 PO
[2024-09-04 06:15] VITALS: TEMP 98.3
[2024-09-04] MEDS: PredniSONE 20 MG TABLET PO ONE (06:22)
[2024-09-04] MEDS: ALBUTEROL SULFATE 2.5 MG/0.5 ML NEB SOLUTION NEB ONE (07:18)
[2024-09-04] MEDS: IPRATROPIUM BROMIDE 0.5 MG/2.5 ML NEB SOLUTION NEB ONE (07:18)
[2024-09-04 07:20] VITALS: PULSE 88; RESP 16; O2SAT 93
[2024-09-04 07:21] VITALS: PULSE 88; RESP 16; O2SAT 93
[2024-09-04 07:51] VITALS: BP 122/69; PULSE 95; RESP 21; O2SAT 94
[2024-09-04] MEDS ORDERED: PRED-554 PO (08:16)
[2024-09-04] MEDS: ALBUTEROL SULFATE HFA 90 MCG/PUFF 8 GM INHALER IH ONE (08:25)
== END 2024-09-04 08:38 | disposition home or self-care (01) ==
LOC: EMS 05:48
DX: J45.901 Unspecified asthma with (acute) exacerbation (principal); Z79.51 Long term (current) use of inhaled steroids; Z79.52 Long term (current) use of systemic steroids; Z79.899 Other long term (current) drug therapy
CPT/HCPCS: 99283; 94640; J7512; J3535

== ENCOUNTER 2024-09-28 17:59 | Emergency (ER) | payer OTHER ==
[~2024-09-28] VITALS: Ht 170.2 cm; Wt 68.2 kg
[~2024-09-28 17:59] MED LIST changes: +PRED-554 PO
[2024-09-28 18:16] VITALS: BP 157/74; PULSE 84; RESP 18; TEMP 98.6; O2SAT 98
[2024-09-28] MEDS ORDERED: ALBU18HF12 IH (18:40)
[2024-09-28] MEDS ORDERED: AMLO-257 PO (18:40)
[2024-09-28] MEDS ORDERED: FLUT12AE20 IH (18:40)
[2024-09-28] MEDS ORDERED: IPRA3AMP24 NEB (18:40)
== END 2024-09-28 18:55 | disposition home or self-care (01) ==
LOC: EMS 18:02
DX: J45.901 Unspecified asthma with (acute) exacerbation (principal); Z76.0 Encounter for issue of repeat prescription; I10 Essential (primary) hypertension; Z91.018 Allergy to other foods; Z79.51 Long term (current) use of inhaled steroids; Z79.899 Other long term (current) drug therapy
CPT/HCPCS: 99281; Z7502

== ENCOUNTER 2025-02-23 17:37 | Emergency (ER) | payer SELFPAY ==
[~2025-02-23] VITALS: Ht 165.1 cm; Wt 70.0 kg
[2025-02-23] MEDS: ALBUTEROL SULFATE 2.5 MG/0.5 ML NEB SOLUTION NEB ONE (18:45)
[2025-02-23] MEDS: IPRATROPIUM BROMIDE 0.5 MG/2.5 ML NEB SOLUTION NEB ONE (18:45)
[2025-02-23 18:50] VITALS: PULSE 93; RESP 20; O2SAT 93
[2025-02-23] MEDS: ALBUTEROL SULFATE HFA 90 MCG/PUFF 8 GM INHALER IH ONE (19:07)
[2025-02-23 19:10] VITALS: PULSE 90; RESP 20; O2SAT 98
[2025-02-23] MEDS ORDERED: IPRA3AMP23 NEB (19:10)
[2025-02-23] MEDS ORDERED: ALBU18HF12 IH (19:10)
[2025-02-23] MEDS ORDERED: FLUT12AE20 IH (19:10)
[2025-02-23 19:15] VITALS: BP 130/85; TEMP 98.1
[2025-02-23] MEDS: BENZONATATE 100 MG CAPSULE PO ONE (19:38)
[2025-02-23 19:40] VITALS: PULSE 93; RESP 20; O2SAT 93
== END 2025-02-23 19:44 | disposition home or self-care (01) ==
LOC: EMS 17:37
DX: J45.901 Unspecified asthma with (acute) exacerbation (principal); R06.02 Shortness of breath; Z79.51 Long term (current) use of inhaled steroids; Z79.52 Long term (current) use of systemic steroids; Z79.899 Other long term (current) drug therapy; Z91.018 Allergy to other foods
CPT/HCPCS: 99284; 94640; J3535; 94060